=== PATIENT | female | born 1995 | race African-American/Black ===

== ENCOUNTER 2021-02-25 04:54 | Emergency (ER) | payer OTHER, MEDICAID ==
[~2021-02-25] VITALS: Ht 162.6 cm; Wt 82.0 kg
[2021-02-25] MEDS ORDERED: ALBU6.7H9 INH (05:08)
[2021-02-25 05:13] VITALS: BP 125/66
== END 2021-02-25 05:29 | disposition home or self-care (01) ==
LOC: ER 05:27
DX: J45.901 Unspecified asthma with (acute) exacerbation (principal); R05.9 Cough, unspecified; F17.290 Nicotine dependence, other tobacco product, uncomplicated; F12.10 Cannabis abuse, uncomplicated; Z88.0 Allergy status to penicillin
CPT/HCPCS: 99283

== ENCOUNTER 2022-03-15 09:28 | Emergency (ER) | payer OTHER, MEDICAID ==
[~2022-03-15] VITALS: Ht 167.6 cm; Wt 63.0 kg
[~2022-03-15 09:28] MED LIST: ALBU6.7H3 INH
[2022-03-15 09:31] VITALS: BP 133/90
[2022-03-15] MEDS ORDERED: ONDANSETRON 4MG ODT PO STA (09:45)
[2022-03-15] MEDS ORDERED: ONDANSETRON 4MG ODT PO ONE (09:45)
[2022-03-15] MEDS ORDERED: MAGNESIUM/ALUMINUM HYDROXIDE/SIMETHICONE 30ML UDC PO STA (09:45)
[2022-03-15] MEDS ORDERED: VISCOUS LIDOCAINE 2% 15 ML UDC PO STA (09:45)
[2022-03-15 10:35] LABS: CLARITY URINE CLEAR (CLEAR); COLOR URINE YELLOW (YELLOW); KETONES URINE TRACE (NEGATIVE); LEUKOCYTE ESTERASE URINE 1+ (NEGATIVE); NITRITE URINE NEGATIVE (NEGATIVE); OCCULT BLOOD URINE 1+ (NEGATIVE); PROTEIN URINE TRACE (NEGATIVE); SPECIFIC GRAVITY URINE 1.025 (1.005-1.030); UROBILINOGEN URINE 0.2 E.U./dL (0.2-1.0)
[2022-03-15 10:39] LABS: BASOPHILS % 0.3 % (0.0-2.0); EOSINOPHILS % 1.1 % (0.0-5.0); HEMOGLOBIN. 10.3 g/dL (12.0-16.0); LYMPHOCYTES % 7.2 % (20.0-50.0); MEAN CORPUSCULAR HEMOGLOBIN 23.5 pg (28.0-32.0); MEAN CORPUSCULAR VOLUME 75.2 fL (81.0-99.0); MEAN PLATELET VOLUME 7.3 fl (7.4-10.4); MONOCYTES % 5.8 % (2.0-8.0); NEUTROPHILS % 85.6 % (40.0-76.0); PLATELET 400 x1000/uL (130-400); RED BLOOD CELL COUNT 4.39 mill/uL (4.2-5.4); RED CELL DISTRIBUTION WIDTH 18.3 % (11.6-14.6)
[2022-03-15 10:47] LABS: CHLORIDE 108 mEq/L (98-107)
[2022-03-15 10:55] LABS: HCG SCREEN NEGATIVE
== END 2022-03-15 12:34 | disposition home or self-care (01) ==
LOC: ER 09:28
DX: R10.13 Epigastric pain (principal); R11.0 Nausea; J45.909 Unspecified asthma, uncomplicated; F12.10 Cannabis abuse, uncomplicated
CPT/HCPCS: 36415; 80053; 81003; 81025; 83690; 84703; 85025; 99284; Q0162

== ENCOUNTER 2023-01-05 15:20 | Emergency (ER) | payer MEDICAID, OTHER ==
[~2023-01-05] VITALS: Ht 160 cm; Wt 62.0 kg
[2023-01-05 15:30] VITALS: O2SAT 100
[2023-01-05] MEDS ORDERED: KETOROLAC 60MG/2ML VIAL IM STA (17:30)
[2023-01-05] MEDS ORDERED: HYDROCODONE/ACETAMINOPHEN 5/325MG TABLET PO STA (17:30)
[2023-01-05] MEDS ORDERED: LIDOCAINE HCL/EPINEPHRINE 1%-EPI 1:100,000 20 ML VIAL INFIL ONE (17:45)
[2023-01-05] MEDS ORDERED: BACITRACIN ZINC OINT UDPKT TOP ONE (17:45)
[2023-01-05] MEDS ORDERED: CEFTRIAXONE SODIUM 1 G/VIAL IM NR (18:45)
[2023-01-05] MEDS ORDERED: SULF1TAB48 MT (18:45)
[2023-01-05] MEDS ORDERED: CLIN-194 PO (18:45)
[2023-01-05] MEDS ORDERED: NAPR-681 PO (18:45)
[2023-01-05] MEDS ORDERED: T3 PO (18:45)
[2023-01-05] MEDS ORDERED: LIDOCAINE HCL/PF 1% 10 MG/ML 5ML VIAL INFIL NR (18:45)
[2023-01-05 19:52] VITALS: BP 110/76; PULSE 84; RESP 20; TEMP 99
== END 2023-01-05 19:55 | disposition home or self-care (01) ==
LOC: ER 15:20
DX: L02.412 Cutaneous abscess of left axilla (principal); L02.411 Cutaneous abscess of right axilla; L02.31 Cutaneous abscess of buttock; L73.2 Hidradenitis suppurativa; F41.9 Anxiety disorder, unspecified; J45.909 Unspecified asthma, uncomplicated; F12.10 Cannabis abuse, uncomplicated
CPT/HCPCS: 99283; 81025; 96372; J0696; J1885; J3490; C1893

== ENCOUNTER 2023-08-13 13:42 | Emergency (ER) | payer MEDICAID ==
[~2023-08-13] VITALS: Ht 160 cm; Wt 61.0 kg
[~2023-08-13 13:42] MED LIST changes: +CLIN-194 PO; +NAPR-681 PO; +SULF1TAB48 MT; +T3 PO
[2023-08-13 13:46] VITALS: BP 132/77; PULSE 108; RESP 20; TEMP 98.3; O2SAT 100
[2023-08-13] MEDS: LIDOCAINE HCL/PF 1% 10 MG/ML 5ML VIAL INFIL ONE (15:10)
[2023-08-13] MEDS: KETOROLAC 15MG/ML VIAL IM ONE (16:11)
[2023-08-13] MEDS: LORAZEPAM 0.5MG TABLET PO ONE (16:11)
[2023-08-13] MEDS ORDERED: SULF1TAB48 MT (16:37)
[2023-08-13] MEDS ORDERED: CEPH500T MT (16:37)
== END 2023-08-13 16:50 | disposition home or self-care (01) ==
LOC: ER 13:42
DX: L02.411 Cutaneous abscess of right axilla (principal); L73.2 Hidradenitis suppurativa; Z88.0 Allergy status to penicillin
CPT/HCPCS: 99283; 10060; 96372; J1885; J3490